=== PATIENT | male | born 1955 | race Two or more races ===

== ENCOUNTER 2022-08-20 19:25 | Emergency (ER) | payer OTHER, MEDICAID ==
[~2022-08-20] VITALS: Ht 172.7 cm; Wt 72.5 kg
[2022-08-20 20:14] LABS: Eosinophils # (auto) 0 10 ^3/uL (0-0.8); Lymphocytes # (auto) 1.1 10 ^3/uL (0.4-5.4); Lymphocytes % (auto) 19.6 % (10.0-50.0); Monocytes # (auto) 0.4 10 ^3/uL (0-1.3)
[2022-08-20 20:16] LABS: Basophils # (auto) 0 10 ^3/uL (0-0.2); Basophils % (auto) 0.7 % (0.0-2.0); Hematocrit 40.8 % (41.0-53.0); Hemoglobin 13.9 g/dL (13.5-17.5); Mean Corpuscular Hemoglobin 34.6 pg (28.0-32.0); Mean Corpuscular Hgb Conc. 34.1 g/dL (32.0-36.0); Mean Corpuscular Volume 101.6 fL (80.0-100.0); Monocytes % (auto) 7.3 % (0.0-12.0); Neutrophils % (auto) 72.4 % (37.0-80.0); Nucleated Red Blood Cells % 0.2 %; Red Blood Cells 4.01 10^6/uL (4.5-5.90); Red Cell Distribution Width 13.9 % (11.8-14.3); White Blood Cell 5.5 10^3/uL (4.4-10.8)
[2022-08-20 20:30] LABS: INR 1.15 (0.9-1.15); Partial Thromboplastin Time 25.7 sec (24.6-33.4)
[2022-08-20 20:31] LABS: Albumin 2.8 g/dL (3.4-5.0); BUN/Creatinine Ratio 10.8; Calcium 8.7 mg/dL (8.5-10.1); Magnesium 2.1 mg/dL (1.6-2.6); Potassium 4.1 mmol/L (3.5-5.1)
[2022-08-20 20:34] LABS: Bilirubin, Total 2.1 mg/dL (0.2-1.0); Total Protein 6.9 g/dL (6.4-8.2)
[2022-08-21 00:33] VITALS: BP 138/81
== END 2022-08-21 00:36 | disposition short-term general hospital (02) ==
LOC: EDBD 19:25 → ER 19:31
DX: R55 Syncope and collapse (principal); I10 Essential (primary) hypertension
CPT/HCPCS: 36415; 70450; 71045; 80053; 83735; 84484; 85025; 85610; 85730; 93005

== ENCOUNTER 2025-03-13 11:10 | Emergency (ER) | payer OTHER, MEDICAID ==
[~2025-03-13] VITALS: Ht 177.8 cm; Wt 79.4 kg
--- NOTE | 2025-03-13 11:19 | ED.PDOC ---
History of Present Illness HPI Comments This is a 70 year old male LUCILA presenting to the ED with chief complaint of generalized weakness. EMS reports that the patient was found by family to have nausea/vomiting in the bathroom with associated generalized weakness this morning. EMS relays that the patient is a heavy ETOH drinker, but has not had a drink in 2 days. EMS states that the patient's BP was initially 66 systolically, but after IV was placed it went up to 189. BG noted to be 129. Patient notes he feels much better now, but still generally weak. Patient reports that he started to experience his symptoms after taking his Metoprolol this morning. Patient denies any chest pain, SOB, dizziness, headache, diarrhea, or abdominal pain. Time Seen by MD: 11:17 Reviewed Notes: Nurses Notes, Supply Chain Design Manager Notes, Medications, Allergies Allergies: Coded Allergies: NO KNOWN ALLERGIES (Unverified , 03/13/25) Home Meds Active Scripts Chlordiazepoxide Hcl (Ni-1) (I (Librium) 10 Mg Cap, 10 MG PO BS for 3 Days, #3 CAP Prov:CAMILLE LEACH MD 03/13/25 Information Source: Patient, Emergency Med Personnel Mode of Arrival: EMS Severity: Moderate Timing: Hours Duration: Since onset Prehospital treatment: None Past Medical History PAST MEDICAL HISTORY: HTN Surgical History: Denies all surgeries Family History Family History: Reviewed,noncontributory to illness Social History Smoker: Non-Smoker Alcohol: Heavy Drugs: Denies Drug Use Lives In: Home Constitutional: reports: weakness; denies: chills, diaphoresis, fatigue, fever, malaise, sweats, others EENTM: denies: blurred vision, double vision, ear bleeding, ear discharge, ear drainage, ear pain, ear ringing, eye pain, eye redness, hearing loss, mouth pain, mouth swelling, nasal discharge, nose bleeding, nose congestion, nose pain, photophobia, tearing, throat pain, throat swelling, voice changes, others Respiratory: denies: cough, hemoptysis, orthopnea, SOB at rest, shortness of breath, SOB with excertion, stridor, wheezing, others Cardiovascular: denies: chest pain, dizzy spells, diaphoresis, Dyspnea on exertion, edema, irregular heart beat, left arm pain, lightheadedness, palpitations, PND, syncope, others Gastrointestinal: reports: nausea, vomiting; denies: abdomen distended, abdominal pain, blood streaked bowels, constipated, diarrhea, dysphagia, difficulty swallowing, hematemesis, melena, poor appetite, poor fluid intake, rectal bleeding, rectal pain, others Genitourinary: denies: burning, dysuria, flank pain, frequency, hematuria, incontinence, penile discharge, penile sore, pain, testicle pain, testicle swelling, urgency, others Neurological: denies: dizziness, fainting, headache, left sided numbness, left sided weakness, numbness, paresthesia, pre-existing deficit, right sided numbness, right sided weakness, seizure, speech problems, tingling, tremors, weakness, others Musculoskeletal: denies: back pain, gout, joint pain, joint swelling, muscle pain, muscle stiffness, neck pain, others Integumetry: denies: bruises, change in color, change in hair/nails, dryness, laceration, lesions, lumps, rash, wounds, others Allergic/Immunocompromised: denies: Difficulty Healing, Frequent Infections, Hives, Itching, others Hematologic/Lymphatic: denies: anemia, blood clots, easy bleeding, easy bruising, swollen glands, others Endocrine: denies: excessive hunger, excessive sweating, excessive thirst, excessive urination, flushing, intolerance to cold, intolerance to heat, unexplained weight gain, unexplained weight loss, others Psychiatric: denies: anxiety, bipolar disorder, depression, hopeless, panic disorder, schizophrenia, sleepless, suicidal, others All Other Systems: Reviewed and Negative Physical Exam General Appearance: Moderate Distress, Normal HEENT: Normal ENT Inspection, Pharynx Normal, TMs Normal Neck: Full Range of Motion, Non-Tender, Normal, Normal Inspection Respiratory: Chest Non-Tender, Lungs Clear, No Accessory Muscle Use, No Respiratory Distress, Normal Breath Sounds Cardiovascular: No Edema, No JVD, No Murmur, No Gallop, Normal Peripheral Pulses, Regular Rate/Rhythm Breast Exam: Deferred Gastrointestinal: No Organomegaly, Non Tender, No Pulsatile Mass, Normal Bowel Sounds, Soft Genitalia: Deferred Pelvic: Deferred Rectal: Deferred Extremities: No calf tenderness, Normal capillary refill, Normal inspection, Normal range of motion, Non-tender, No pedal edema Musculoskeletal : Apperance: Normal Neurologic: Alert, player services representative II-XII nml as Tested, No Motor Deficits, Normal Affect, Normal Mood, No Sensory Deficits Cerebellar Function: Normal Reflexes: Normal Skin: Dry, Normal Color, Warm Peripheral Pulses: 3+ Radial (R), 3+ Radial (L) Lymphatic: No Adenopathy Was a procedure done? Was a procedure done?: No EKG EKG : Pulse Rate (adult): 73 [place]: Normal Cardiac Rhythm: NSR Block: None Hypertrophy: None ST: Normal Differential Dx Considerations may include: Dehydration Electrolyte imbalance X-Ray, Labs, Meds, VS Vital Signs Date Time Temp Pulse Resp B/P (MAP) Pulse Ox O2 Delivery O2 Flow Rate FiO2 03/13/25 16:00 98.0 82 16 159/95 (116) 94 98.0 03/13/25 14:00 87 16 141/90 (107) 94 03/13/25 12:34 97 Room Air* 0 21 03/13/25 12:15 67 16 94 Room Air* 0 21 03/13/25 12:00 67 16 159/89 (112) 94 03/13/25 11:30 97.7 71 16 167/95 (119) 94 97.7 03/13/25 11:20 73 03/13/25 11:19 98.1 74 18 185/83 98 98.1 03/13/25 11:18 73 Lab Test 03/13/25 11:35 03/13/25 11:31 Range/Units POC Glucose 112 H 70-106 mg/dl White Blood Count 4.6 4.4-10.8 10^3/uL Red Blood Count 4.68 4.5-5.90 10^6/uL Hemoglobin 16.3 13.5-17.5 g/dL Hematocrit 47.1 41.0-53.0 % Mean Corpuscular Volume 100.5 H 80.0-100.0 fL Mean Corpuscular Hemoglobin 34.7 H 28.0-32.0 pg Mean Corpuscular Hemoglobin Concent 34.6 32.0-36.0 g/dL Red Cell Distribution Width 12.7 11.8-14.3 % Platelet Count 83 L 140-450 10^3/uL Mean Platelet Volume 6.6 L 6.9-10.8 fL Neutrophils (%) (Auto) 57.2 37.0-80.0 % Lymphocytes (%) (Auto) 33.8 10.0-50.0 % Monocytes (%) (Auto) 7.1 0.0-12.0 % Eosinophils (%) (Auto) 1.0 0.0-7.0 % Basophils (%) (Auto) 0.9 0.0-2.0 % Neutrophils # (Auto) 2.6 1.6-8.6 10 ^3/uL Lymphocytes # (Auto) 1.5 0.4-5.4 10 ^3/uL Monocytes # (Auto) 0.3 0-1.3 10 ^3/uL Eosinophils # (Auto) 0 0-0.8 10 ^3/uL Basophils # (Auto) 0 0-0.2 10 ^3/uL Nucleated Red Blood Cells 0.4 % Sodium Level 136 136-145 mmol/L Potassium Level 3.8 3.5-5.1 mmol/L Chloride Level 98 98-107 mmol/L Carbon Dioxide Level 24 20-31 mmol/L Anion Gap 14 5-15 Blood Urea Nitrogen < 5 L 9-23 mg/dL Creatinine 0.80 0.700-1.30 mg/dL Glomerular Filtration Rate Calc 96 >90 mL/min BUN/Creatinine Ratio 6.3 L 10.0-20.0 Serum Glucose 110 H 74-106 mg/dL Calcium Level 8.9 8.7-10.4 mg/dL Current Medications Medications (Trade) Dose Ordered Sig/Vandana Route Start Time Stop Time Status Last Admin Sodium Chloride 1,000 ml @ 1,000 mls/hr Q1H ONCE IV 03/13/25 11:30 03/13/25 12:29 DC 03/13/25 13:39 Thiamine HCl 100 mg ONCE ONCE IV 03/13/25 11:30 03/13/25 11:31 DC 03/13/25 13:38 Lorazepam (Ativan Inj) 1 mg ONCE ONCE IV 03/13/25 11:30 03/13/25 11:31 DC 03/13/25 13:38 Patient alert. Complaining of feeling fatigued after not having drinks with two days. Moving all extremities. Vitals stable. Establish intravenous access. Was given fluids. Was given thiamine. Saturation pristine on room air. Heart rate within normal limits. No leg swelling. No shortness a breath. No chest pain. Respiratory rate within normal limits. Explained to the patient. Was told to follow up with his primary care physician. Was told to come back if there is any problem. Time of 1ST Reevaluation: 12:16 Reevaluation 1ST: Improved Time of 2ND Reevaluation: 14:17 Reevaluation 2ND: Improved Patient Education/Counseling: Diagnosis, Treatment Family Education/Counseling: No Family Present SEPSIS Sepsis Screen Physician Orders Electrocardigram (03/13/25 11:25) Vital Signs Date Time Temp Pulse Resp B/P (MAP) Pulse Ox O2 Delivery O2 Flow Rate FiO2 03/13/25 16:00 98.0 82 16 159/95 (116) 94 98.0 03/13/25 14:00 87 16 141/90 (107) 94 03/13/25 12:34 97 Room Air* 0 21 03/13/25 12:15 67 16 94 Room Air* 0 21 03/13/25 12:00 67 16 159/89 (112) 94 03/13/25 11:30 97.7 71 16 167/95 (119) 94 97.7 03/13/25 11:20 73 03/13/25 11:19 98.1 74 18 185/83 98 98.1 03/13/25 11:18 73 Laboratory Tests Test 03/13/25 11:31 White Blood Count 4.6 10^3/uL (4.4-10.8) Medications Medications Dose Ordered Sig/Vandana Route Start Time Stop Time Status Last Admin Dose Admin Lorazepam 1 mg ONCE ONCE IV 03/13/25 11:30 03/13/25 11:31 DC 03/13/25 13:38 Sodium Chloride 1,000 ml @ 1,000 mls/hr Q1H ONCE IV 03/13/25 11:30 03/13/25 12:29 DC 03/13/25 13:39 Thiamine HCl 100 mg ONCE ONCE IV 03/13/25 11:30 03/13/25 11:31 DC 03/13/25 13:38 Departure 1 Departure Time of Disposition: 14:19 Impression: Primary Impression: Alcohol withdrawal Qualified Codes: F10.930 - Alcohol use, unspecified with withdrawal, uncomplicated Disposition: 01 HOME / SELF CARE / HOMELESS Condition: Good e-Prescriptions Chlordiazepoxide Hcl (Ni-1) (I (Librium) 10 Mg Cap 10 MG PO DAILY for 3 Days, #3 CAP Prov: CAMILLE LEACH MD 03/13/25 Chlordiazepoxide Hcl (Ni-1) (I (Librium) 10 Mg Cap 10 MG PO BS for 3 Days, #3 CAP Prov: CAMILLE LEACH MD 03/13/25 Discharged With: Self Critical Care Note Critical Care Time?: No Stability Stability form required: No Heart Score Heart Score: Heart Score Response (Comments) Value History Slightly Suspicious 0 EKG Normal 0 Age >65 2 Risk Factors 1 or 2 risk factors 1 Troponin N/A 0 Total 3 I personally scribed for CAMILLE LEACH MD ([email or web address]) on 03/13/25 at 11:19. Electronically submitted by Rene Mazariegos ([email or web address]). I personally scribed for CAMILLE LEACH MD ([email or web address]) on 03/13/25 at 11:20. Electronically submitted by Rene Mazariegos ([email or web address]). CAMILLE LEACH MD Mar 13, 2025 11:19
[2025-03-13 11:48] LABS: Hemoglobin 16.3 g/dL (13.5-17.5); Nucleated Red Blood Cells % 0.4 %
[2025-03-13 11:51] LABS: Hematocrit 47.1 % (41.0-53.0); Mean Corpuscular Hemoglobin 34.7 pg (28.0-32.0); Mean Corpuscular Volume 100.5 fL (80.0-100.0)
[2025-03-13 11:53] LABS: Chloride 98 mmol/L (98-107); Potassium 3.8 mmol/L (3.5-5.1); Sodium 136 mmol/L (136-145)
[2025-03-13 11:54] LABS: Calcium 8.9 mg/dL (8.7-10.4); Carbon Dioxide 24 mmol/L (20-31)
[2025-03-13 11:59] LABS: Glucose 110 mg/dL (74-106)
[2025-03-13 12:00] LABS: Anion Gap 14 (5-15); BUN/Creatinine Ratio 6.3 (10.0-20.0); Blood Urea Nitrogen < 5 mg/dL (9-23)
[2025-03-13 12:15] VITALS: PULSE 67; RESP 16; O2SAT 94
[2025-03-13] MEDS: THIAMINE 100mg/ml INJ (200mg/2ml VIAL) IV ONE (13:38)
[2025-03-13] MEDS: LORazepam 2MG/ML-1ML VIAL IV ONE (13:38)
[2025-03-13] MEDS: SODIUM CHLORIDE 0.9% 1,000 ML IV ONE (13:39)
[2025-03-13] MEDS ORDERED: CHL10C PO ×2 (14:20→16:06)
[2025-03-13 16:00] VITALS: BP 159/95; PULSE 82; RESP 16; TEMP 98; O2SAT 94
--- NOTE | 2025-03-13 23:23 | ECG ---
[facility] Test Date: 2025-03-13 Test Time: 11:18:33 Pat Name: AMILCAR KEITH Department: Room: Gender: M Delivery Person: LUIS : 1955 Requested By: CAMILLE LEACH Order Number: [id number] Reading MD: Bolivar Kingston Measurements Intervals [place] Rate: 73 P: -7 AL: 167 QRS: 39 QRSD: 165 T: 33 QT: 484 QTc: 534 Interpretive Statements Sinus rhythm Right bundle branch block Electronically Signed On 03-14-2025 16:43:26 PDT by Bolivar Kingston Please click the below link to view image of tracing.
== END 2025-03-13 16:04 | disposition home or self-care (01) ==
LOC: ER 11:10 → EDBD 11:10 → ER 16:04
DX: F10.239 Alcohol dependence with withdrawal, unspecified (principal); I10 Essential (primary) hypertension; Y90.9 Presence of alcohol in blood, level not specified; Z79.899 Other long term (current) drug therapy
CPT/HCPCS: 36415; 80048; 82947; 85025; 93005; 96361; 96374; 96375; 99285; J2060; J3411; J7030; 82962